=== PATIENT | female | born 1945 | race Caucasian/White ===

== ENCOUNTER 2025-01-22 14:03 | Inpatient (IN) | payer BC ==
[~2025-01-22] VITALS: Ht 165.1 cm; Wt 68.0 kg
[2025-01-22] VITALS (15 sets, daily range): BP systolic 105–143; BP diastolic 64–97; TEMP 97.8; O2SAT 87–97
[2025-01-22] MEDS: IV NORMAL SALINE 1000 ML BAG IV ONE ×2 (14:17→16:15)
[2025-01-22] MEDS: AMIODARONE HCL IV 150 MG in IV DEXTROSE 5% 100 ML IV ONE (14:36)
[2025-01-22 14:53] LABS: PLATELET COUNT (AUTO) 334 K/uL (179-408); RED BLOOD CELL COUNT(AUTO) 5.34 MIL/uL (3.63-4.92); RED CELL DISTRIBUTION WIDTH 13.6 % (12.3-17.7); WHITE BLOOD COUNT (AUTO) 9.1 K/uL (3.8-11.8)
[2025-01-22] MEDS: AMIODARONE HCL IV 450 MG in IV DEXTROSE 5% 250 ML IV ONE (14:55)
[2025-01-22 15:06] LABS: ASPARTATE AMINOTRANSFERASE 42 U/L (15-37); CREATININE 1.3 mg/dL (0.6-1.3); SODIUM SERUM 150 mmol/L (136-145); TOTAL PROTEIN, SERUM 7.1 g/dL (6.4-8.2)
[2025-01-22 15:10] LABS: LACTIC ACID 2.8 mmol/L (0.4-2.0); UREA NITROGEN, BLOOD 88 mg/dL (7-18)
[2025-01-22] MEDS ORDERED: MEROPENEM 1GM/NS 100ML IVPB **ER PYXIS ONLY IV ONE (15:20)
[2025-01-22] MEDS: IV NORMAL SALINE 500 ML BAG IV ONE (15:30)
[2025-01-22] MEDS: MEROPENEM 1,000 MG in IV NORMAL SALINE 100 ML IV ONE (15:35)
[2025-01-22] MEDS ORDERED: IV NS 1000 ML 1,000 ML IV PRN (16:45)
[2025-01-22] MEDS ORDERED: REMEDY ESSENTIAL ZINC PASTE 113 GM TP PRN (16:45)
[2025-01-22] MEDS ORDERED: ONDANSETRON 4 MG/2 ML VIAL IV PRN (16:45)
[2025-01-22] MEDS ORDERED: AMLO-212 PO (16:48)
[2025-01-22] MEDS ORDERED: LISI10TA29 PO (16:48)
[2025-01-22] MEDS: IV NS 1000 ML 1,000 ML IV ONE (17:00)
[2025-01-22 17:51] LABS: CREATININE 1.1 mg/dL (0.6-1.3); SODIUM SERUM 152 mmol/L (136-145)
[2025-01-22 17:55] LABS: UREA NITROGEN, BLOOD 86 mg/dL (7-18)
[2025-01-22] MEDS: DIGOXIN 500 MCG/2 ML AMP IV ONE (18:00)
[2025-01-22] MEDS ORDERED: DIGOXIN 500 MCG/2 ML AMP ONE (18:19)
[2025-01-22] MEDS: IV D5W 1000ML 1,000 ML IV ONE ×2 (18:30→22:39)
[2025-01-22 20:45] LABS: *BILIRUBIN,URIN 1+ (NEGATIVE); *BLOOD, URINE 1+ (NEGATIVE); *CLARITY,URINE CLEAR (CLEAR); *COLOR,URINE YELLOW (YELLOW); *KETONES,URINE 1+ (NEGATIVE); *PROTEIN,URINE 2+ (NEGATIVE); *UROBILINOGEN,URINE 0.2 E.U./dl (NORMAL); LEUKOCYTE ESTERASE ,URINE NEGATIVE (NEGATIVE); NITRITE, URINE NEGATIVE (NEGATIVE); UGLUCOSE NEGATIVE (NEGATIVE)
[2025-01-22 20:59] LABS: SQUAMOUS EPITHELIAL CELL,UR FEW /HPF (NONE SEEN)
[2025-01-22] MEDS ORDERED: CEFEPIME HCL 1 G VIAL ONE (21:17)
[2025-01-22] MEDS: CEFEPIME HCL 1 G in IV DEXTROSE 5% 50 ML IV SCH (21:19)
[2025-01-22] MEDS ORDERED: AMIODARONE HCL 150 MG/3 ML VIAL IV ONE (21:36)
[2025-01-22] MEDS: AMIODARONE HCL IV 450 MG in IV DEXTROSE 5% 250 ML IV PRN (21:53)
[2025-01-23] VITALS (37 sets, daily range): BP systolic 103–149; BP diastolic 67–119; TEMP 98.1–98.8; O2SAT 95–98
[2025-01-23 05:09] LABS: PLATELET COUNT (AUTO) 259 K/uL (179-408); RED BLOOD CELL COUNT(AUTO) 4.72 MIL/uL (3.63-4.92); RED CELL DISTRIBUTION WIDTH 13.4 % (12.3-17.7); WHITE BLOOD COUNT (AUTO) 9.2 K/uL (3.8-11.8)
[2025-01-23 05:10] LABS: CREATININE 0.8 mg/dL (0.6-1.3); SODIUM SERUM 140 mmol/L (136-145); UREA NITROGEN, BLOOD 57 mg/dL (7-18)
[2025-01-23 05:12] LABS: NEUTROPHILS % (MANUAL) 0 % (42-75)
[2025-01-23 05:45] LABS: CREATINE KINASE, TOTAL 470 U/L (26-192)
[2025-01-23] MEDS ORDERED: PANTOPRAZOLE SODIUM 40 MG TABLET.DR PO ONE ×2 (07:03→08:40)
[2025-01-23] MEDS: PANTOPRAZOLE SODIUM 40 MG TABLET.DR PO SCH (07:04)
[2025-01-23] MEDS ORDERED: DILTIAZEM HCL 60 MG TABLET ONE ×2 (10:28→13:47)
[2025-01-23] MEDS: APIXABAN 5 MG TABLET PO SCH (10:32)
[2025-01-23] MEDS: DILTIAZEM HCL 30 MG TABLET PO SCH (10:34)
[2025-01-23] MEDS: IV NS 1000 ML 1,000 ML IV PRN (11:01)
[2025-01-23] MEDS: NEUTRA PHOS PACKET PO ONE (12:34)
[2025-01-23] MEDS: VANCOMYCIN IV 1,000 MG in IV DEXTROSE 5% 250 ML IV SCH (15:12)
[2025-01-24] VITALS: BP 141/84; TEMP 98.6; O2SAT 95
[2025-01-24 04:00] VITALS: BP 148/78; TEMP 98; O2SAT 97
[2025-01-24 06:54] LABS: PLATELET COUNT (AUTO) 219 K/uL (179-408); RED BLOOD CELL COUNT(AUTO) 4.39 MIL/uL (3.63-4.92); RED CELL DISTRIBUTION WIDTH 13.1 % (12.3-17.7); WHITE BLOOD COUNT (AUTO) 7.0 K/uL (3.8-11.8)
[2025-01-24 06:56] LABS: CREATININE 0.7 mg/dL (0.6-1.3); SODIUM SERUM 145 mmol/L (136-145); UREA NITROGEN, BLOOD 37 mg/dL (7-18)
[2025-01-24 08:00] VITALS: BP 137/73; TEMP 98.9; O2SAT 97
[2025-01-24] MEDS: DILTIAZEM HCL CD 180 MG CAP.SR.24H PO SCH (09:35)
[2025-01-24 11:52] VITALS: BP 126/75; TEMP 98.2; O2SAT 96
[2025-01-24] MEDS: MEDIHONEY= THERAHONEY 1.5 OZ TUBE TOP SCH (13:50)
[2025-01-24 14:25] LABS: BAND % (MANUAL) 8 % (0-10); EOSINOPHILS % (MANUAL) 1 % (0-8); LYMPHOCYTES % (MANUAL) 25 % (20-40); MONOCYTES % (MANUAL) 18 % (2-10); NEUTROPHILS % (MANUAL) 48 % (42-75)
[2025-01-24] MEDS: MAGNESIUM HYDROXIDE 30 ML LIQUID UDC PO PRN (15:01)
[2025-01-24] MEDS: MAG HYDROX/AL HYDROX/SIMETH 30 ML LIQUID UDC PO PRN (15:09)
[2025-01-24 15:56] VITALS: BP 102/58; TEMP 98; O2SAT 95
[2025-01-24] MEDS: ACETAMINOPHEN 325 MG TABLET PO PRN (15:58)
[2025-01-24 19:00] VITALS: BP 136/52; TEMP 97.6; O2SAT 98
[2025-01-24] MEDS: MELATONIN 3 MG TABLET PO PRN (21:05)
[2025-01-25] VITALS: BP 130/67; TEMP 97.7; O2SAT 95
[2025-01-25 04:00] VITALS: BP 118/64; TEMP 97.7; O2SAT 96
[2025-01-25] MEDS: HYDROCODONE/APAP 5-325MG TABLET PO PRN (06:13)
[2025-01-25 06:58] LABS: PLATELET COUNT (AUTO) 229 K/uL (179-408); RED BLOOD CELL COUNT(AUTO) 4.18 MIL/uL (3.63-4.92); RED CELL DISTRIBUTION WIDTH 13.4 % (12.3-17.7); WHITE BLOOD COUNT (AUTO) 9.4 K/uL (3.8-11.8)
[2025-01-25 07:08] LABS: CREATININE 0.8 mg/dL (0.6-1.3); SODIUM SERUM 142 mmol/L (136-145); UREA NITROGEN, BLOOD 34 mg/dL (7-18)
[2025-01-25 07:48] VITALS: BP 135/63; TEMP 97.8; O2SAT 98
[2025-01-25 14:37] VITALS: BP 140/53; TEMP 97.6; O2SAT 97
[2025-01-25 16:21] VITALS: BP 133/69; TEMP 97.6; O2SAT 97
[2025-01-25 19:00] VITALS: BP 119/62; TEMP 97.9; O2SAT 95
[2025-01-26] VITALS: BP 129/68; TEMP 97.8; O2SAT 95
[2025-01-26 04:00] VITALS: BP 124/70; TEMP 97.8; O2SAT 95
[2025-01-26 07:11] LABS: PLATELET COUNT (AUTO) 219 K/uL (179-408); RED BLOOD CELL COUNT(AUTO) 4.15 MIL/uL (3.63-4.92); RED CELL DISTRIBUTION WIDTH 13.1 % (12.3-17.7); WHITE BLOOD COUNT (AUTO) 8.9 K/uL (3.8-11.8)
[2025-01-26 07:28] LABS: CREATININE 0.7 mg/dL (0.6-1.3); SODIUM SERUM 139 mmol/L (136-145); UREA NITROGEN, BLOOD 29 mg/dL (7-18)
[2025-01-26 07:50] VITALS: BP 131/63; TEMP 98; O2SAT 95
[2025-01-26 11:55] VITALS: BP 109/61; TEMP 98.1; O2SAT 96
[2025-01-26 16:31] VITALS: BP 117/61; TEMP 98.2; O2SAT 94
[2025-01-26 19:55] VITALS: BP 135/65; TEMP 97.8; O2SAT 95
[2025-01-27 05:57] VITALS: BP 131/63; TEMP 97.9; O2SAT 96
[2025-01-27 06:55] LABS: PLATELET COUNT (AUTO) 222 K/uL (179-408); RED BLOOD CELL COUNT(AUTO) 3.86 MIL/uL (3.63-4.92); RED CELL DISTRIBUTION WIDTH 12.9 % (12.3-17.7); WHITE BLOOD COUNT (AUTO) 10.0 K/uL (3.8-11.8)
[2025-01-27 07:06] LABS: CREATININE 0.6 mg/dL (0.6-1.3); SODIUM SERUM 140 mmol/L (136-145); UREA NITROGEN, BLOOD 30 mg/dL (7-18)
[2025-01-27 08:55] VITALS: BP 134/69; TEMP 97.9; O2SAT 96
[2025-01-27] MEDS ORDERED: AMLODIPINE 5 MG TABLET PO SCH (09:00)
[2025-01-27] MEDS: LISINOPRIL 10 MG TABLET PO SCH (09:12)
[2025-01-27] MEDS: LACTULOSE 20 G/30 ML LIQUID UDC PO ONE (09:57)
[2025-01-27 11:50] VITALS: BP 107/53; TEMP 98.8; O2SAT 97
[2025-01-27 16:18] VITALS: BP 104/62; TEMP 98.6; O2SAT 96
[2025-01-27 20:30] VITALS: BP 121/56; TEMP 98.1; O2SAT 95
[2025-01-28] MEDS: TRAZODONE 50 MG TABLET PO ONE (00:14)
[2025-01-28 04:35] VITALS: BP 128/57; TEMP 97.2; O2SAT 96
[2025-01-28 06:58] LABS: PLATELET COUNT (AUTO) 240 K/uL (179-408); RED BLOOD CELL COUNT(AUTO) 3.84 MIL/uL (3.63-4.92); RED CELL DISTRIBUTION WIDTH 12.9 % (12.3-17.7); WHITE BLOOD COUNT (AUTO) 10.7 K/uL (3.8-11.8)
[2025-01-28 07:14] LABS: CREATININE 0.6 mg/dL (0.6-1.3); SODIUM SERUM 137 mmol/L (136-145); UREA NITROGEN, BLOOD 32 mg/dL (7-18)
[2025-01-28 11:56] VITALS: BP 119/59; TEMP 98.4; O2SAT 96
[2025-01-28 16:04] VITALS: BP 121/49; TEMP 97.9; O2SAT 97
[2025-01-28 17:44] LABS: *CLARITY,URINE CLOUDY (CLEAR); *COLOR,URINE BROWN (YELLOW)
[2025-01-28 17:49] LABS: *BILIRUBIN,URIN 1+ (NEGATIVE); *BLOOD, URINE 4+ (NEGATIVE); *PROTEIN,URINE 3+ (NEGATIVE); UGLUCOSE NEGATIVE (NEGATIVE)
[2025-01-28 17:50] LABS: *KETONES,URINE NEGATIVE (NEGATIVE); *UROBILINOGEN,URINE 0.2 E.U./dl (NORMAL); NITRITE, URINE NEGATIVE (NEGATIVE)
[2025-01-28 17:51] LABS: LEUKOCYTE ESTERASE ,URINE TRACE (NEGATIVE)
[2025-01-28 17:59] LABS: SQUAMOUS EPITHELIAL CELL,UR MODERATE /HPF (NONE SEEN)
[2025-01-28 19:50] VITALS: BP 126/53; TEMP 99; O2SAT 97
[2025-01-29 06:08] VITALS: BP 121/57; TEMP 97.8; O2SAT 96
[2025-01-29 07:24] LABS: CREATININE 0.7 mg/dL (0.6-1.3); SODIUM SERUM 136 mmol/L (136-145); UREA NITROGEN, BLOOD 34 mg/dL (7-18)
[2025-01-29 07:31] LABS: PLATELET COUNT (AUTO) 224 K/uL (179-408); RED BLOOD CELL COUNT(AUTO) 3.14 MIL/uL (3.63-4.92); RED CELL DISTRIBUTION WIDTH 12.9 % (12.3-17.7); WHITE BLOOD COUNT (AUTO) 11.7 K/uL (3.8-11.8)
[2025-01-29 11:15] VITALS: BP 115/48; TEMP 98.2; O2SAT 96
[2025-01-29] MEDS ORDERED: APIX5TAB PO (11:18)
[2025-01-29] MEDS ORDERED: DILT180C66 PO (11:18)
[2025-01-29] MEDS ORDERED: CEPH500T PO (11:18)
[2025-01-29] MEDS: CEFTRIAXONE 1 G in IV DEXTROSE 5% 50 ML IV SCH (13:50)
[2025-01-29 15:07] VITALS: BP 108/54; TEMP 98.6; O2SAT 94
[2025-01-29 19:00] VITALS: BP 112/45; TEMP 98; O2SAT 95
[2025-01-30 06:00] VITALS: BP 119/83; TEMP 98.4; O2SAT 96
[2025-01-30 07:06] LABS: PLATELET COUNT (AUTO) 221 K/uL (179-408); RED BLOOD CELL COUNT(AUTO) 2.71 MIL/uL (3.63-4.92); RED CELL DISTRIBUTION WIDTH 13.1 % (12.3-17.7); WHITE BLOOD COUNT (AUTO) 10.8 K/uL (3.8-11.8)
[2025-01-30 07:24] LABS: CREATININE 0.7 mg/dL (0.6-1.3); SODIUM SERUM 138 mmol/L (136-145); UREA NITROGEN, BLOOD 33 mg/dL (7-18)
[2025-01-30 12:07] VITALS: BP 122/55; TEMP 98; O2SAT 95
== END 2025-01-30 13:05 | DRG 557 ==
LOC: ER 14:03 → ICU IN 19:55 → TELE3 01-23 16:10 → MEDSURG3 01-26 11:21
PROVIDERS: ADMIT Nurse Practitioner Acute Care; ATTEND Nurse Practitioner Acute Care
PROC: 05HF33Z Insertion of Infusion Device into Left Cephalic Vein, Percutaneous Approach (ICD-10-PCS; principal; 2025-01-22)
DX: M62.82 Rhabdomyolysis (principal); I21.A1 Myocardial infarction type 2; E87.0 Hyperosmolality and hypernatremia; N39.0 Urinary tract infection, site not specified; N17.9 Acute kidney failure, unspecified; E87.20 Acidosis, unspecified; G93.40 Encephalopathy, unspecified; R78.81 Bacteremia; I48.91 Unspecified atrial fibrillation; E86.0 Dehydration; Z79.899 Other long term (current) drug therapy; L89.156 Pressure-induced deep tissue damage of sacral region; L89.136 Pressure-induced deep tissue damage of right lower back; L89.146 Pressure-induced deep tissue damage of left lower back; I10 Essential (primary) hypertension; K59.00 Constipation, unspecified; D64.9 Anemia, unspecified; E86.1 Hypovolemia; N28.1 Cyst of kidney, acquired; M54.9 Dorsalgia, unspecified; R19.5 Other fecal abnormalities; R53.1 Weakness; Z91.81 History of falling; I95.9 Hypotension, unspecified
CPT/HCPCS: 36415; 70030-TC; 71045; 76770; 83605; 83735; 84100; 84443; 84484; 85025; 85730; 87040; 87086; 93307; A4606; A4663; A6213; C1758; G0378; J0282; J0692; J0696; J1160; J2185; J3373; J7040; J7050; J7060; J7070

== ENCOUNTER 2025-02-05 15:57 | Inpatient (IN) | payer BC, MEDICARE ==
[~2025-02-05] VITALS: Ht 170.2 cm; Wt 88.0 kg
[~2025-02-05 15:57] MED LIST: APIX5TAB PO; CEPH500T PO; DILT180C66 PO
[2025-02-05] MEDS: IV NORMAL SALINE 1000 ML BAG IV ONE (16:34)
[2025-02-05 16:42] LABS: PLATELET COUNT (AUTO) 397 K/uL (179-408); RED CELL DISTRIBUTION WIDTH 14.8 % (12.3-17.7); WHITE BLOOD COUNT (AUTO) 15.8 K/uL (3.8-11.8)
[2025-02-05 16:47] LABS: RED BLOOD CELL COUNT(AUTO) 2.15 MIL/uL (3.63-4.92)
[2025-02-05 16:47] LABS: ABG BASE EXCESS 1.9 mmol/L (-2.0-3.0); ABG HCO3 24.7 mmol/L (21.0-28.0); ABG PCO2 30.2 mmHg (32.0-45.0); ABG PH 7.530 (7.350-7.450); ABG PO2 60.5 mmHg (83.0-108.0); ABG SITE RIGHT RADIAL; ABG TOTAL HEMOGLOBIN 6.7 G/dL (12.0-16.0); AaDO2 94.0 mmHg; FIO2 21.0 %; FLOW, BLOOD GAS 0.00 L/min (0.00-30.00)
[2025-02-05 16:53] LABS: CREATININE 1.0 mg/dL (0.6-1.3); SODIUM SERUM 138 mmol/L (136-145); UREA NITROGEN, BLOOD 37 mg/dL (7-18)
[2025-02-05 17:05] LABS: ASPARTATE AMINOTRANSFERASE 18 U/L (15-37); TOTAL PROTEIN, SERUM 5.7 g/dL (6.4-8.2)
[2025-02-05 18:04] LABS: BAND % (MANUAL) 2 % (0-10); LYMPHOCYTES % (MANUAL) 12 % (20-40); MONOCYTES % (MANUAL) 5 % (2-10); NEUTROPHILS % (MANUAL) 81 % (42-75); PLATELET ESTIMATE ADEQUATE
[2025-02-05 18:11] LABS: *BILIRUBIN,URIN 1+ (NEGATIVE); *BLOOD, URINE NEGATIVE (NEGATIVE); *CLARITY,URINE CLEAR (CLEAR); *COLOR,URINE DARK YELLOW (YELLOW); *KETONES,URINE NEGATIVE (NEGATIVE); *PROTEIN,URINE NEGATIVE (NEGATIVE); *UROBILINOGEN,URINE 1.0 E.U./dl (NORMAL); LEUKOCYTE ESTERASE ,URINE NEGATIVE (NEGATIVE); NITRITE, URINE NEGATIVE (NEGATIVE); UGLUCOSE NEGATIVE (NEGATIVE)
[2025-02-05 19:05] LABS: SQUAMOUS EPITHELIAL CELL,UR FEW /HPF (NONE SEEN)
[2025-02-05 19:11] LABS: *OCCULT BLOOD STOOL POSITIVE (NEGATIVE)
[2025-02-05 19:30] VITALS: BP 124/50; TEMP 98; O2SAT 96
[2025-02-05] MEDS ORDERED: MAGNESIUM HYDROXIDE 30 ML LIQUID UDC PO PRN (19:45)
[2025-02-05 20:24] VITALS: BP 124/50; TEMP 98
[2025-02-05 20:52] VITALS: BP 112/42; TEMP 97.9
[2025-02-05 21:22] VITALS: BP 110/47; TEMP 97.9
[2025-02-05] MEDS ORDERED: CEFTRIAXONE /D5W 50ML IVPB **ER PYXIS IV ONE (21:53)
[2025-02-05 22:22] VITALS: BP 117/52; TEMP 98.5
[2025-02-05 23:15] VITALS: BP 112/46; TEMP 98.5
[2025-02-05] MEDS: IV NS 1000 ML 1,000 ML IV PRN (23:29)
[2025-02-05] MEDS: CEFTRIAXONE 1 G in IV DEXTROSE 5% 50 ML IV SCH (23:30)
[2025-02-06] VITALS (12 sets, daily range): BP systolic 100–131; BP diastolic 46–89; TEMP 97.7–99; O2SAT 94–98
[2025-02-06] MEDS: DILTIAZEM HCL CD 180 MG CAP.SR.24H PO SCH (06:48)
[2025-02-06 07:03] LABS: PLATELET COUNT (AUTO) 307 K/uL (179-408); RED CELL DISTRIBUTION WIDTH 14.6 % (12.3-17.7); WHITE BLOOD COUNT (AUTO) 10.5 K/uL (3.8-11.8)
[2025-02-06 07:05] LABS: ASPARTATE AMINOTRANSFERASE 10 U/L (15-37); CREATININE 0.7 mg/dL (0.6-1.3); SODIUM SERUM 141 mmol/L (136-145); TOTAL PROTEIN, SERUM 4.9 g/dL (6.4-8.2); UREA NITROGEN, BLOOD 33 mg/dL (7-18)
[2025-02-06 07:12] LABS: IRON, SERUM 18 ug/dL (50-175)
[2025-02-06 07:14] LABS: RED BLOOD CELL COUNT(AUTO) 2.10 MIL/uL (3.63-4.92)
[2025-02-06] MEDS: PANTOPRAZOLE SODIUM 40 MG VIAL IV SCH (08:26)
[2025-02-06] MEDS: ACETAMINOPHEN 325 MG TABLET PO PRN (08:31)
[2025-02-06] MEDS ORDERED: DILTIAZEM HCL CD 180 MG CAP.SR.24H PO SCH (09:00)
[2025-02-06] MEDS ORDERED: PANTOPRAZOLE SODIUM 40 MG VIAL IV SCH (09:00)
[2025-02-06 10:16] LABS: PLATELET COUNT (AUTO) 312 K/uL (179-408); RED CELL DISTRIBUTION WIDTH 14.4 % (12.3-17.7); WHITE BLOOD COUNT (AUTO) 11.6 K/uL (3.8-11.8)
[2025-02-06] MEDS: POTASSIUM CHLORIDE 20 MEQ POWDER PACKET PO ONE (10:16)
[2025-02-06 10:38] LABS: RED BLOOD CELL COUNT(AUTO) 2.17 MIL/uL (3.63-4.92)
[2025-02-06 14:48] LABS: BAND % (MANUAL) 8 % (0-10); EOSINOPHILS % (MANUAL) 1 % (0-8); LYMPHOCYTES % (MANUAL) 19 % (20-40); MONOCYTES % (MANUAL) 6 % (2-10); NEUTROPHILS % (MANUAL) 73 % (42-75)
[2025-02-06 14:49] LABS: PLATELET ESTIMATE ADEQUATE
[2025-02-07] VITALS (7 sets, daily range): BP systolic 112–136; BP diastolic 51–64; TEMP 97.8–98.2; O2SAT 62–100
[2025-02-07] MEDS: GUAIFENESIN/DEXTROMETHORPHAN 5 ML UDC PO PRN (00:18)
[2025-02-07] MEDS: HYDROCODONE/APAP 5-325MG TABLET PO ONE (02:03)
[2025-02-07 06:45] LABS: CREATININE 0.7 mg/dL (0.6-1.3); SODIUM SERUM 139 mmol/L (136-145); UREA NITROGEN, BLOOD 26 mg/dL (7-18)
[2025-02-07 09:31] LABS: PLATELET COUNT (AUTO) 305 K/uL (179-408); RED CELL DISTRIBUTION WIDTH 14.3 % (12.3-17.7); WHITE BLOOD COUNT (AUTO) 8.3 K/uL (3.8-11.8)
[2025-02-07 09:57] LABS: RED BLOOD CELL COUNT(AUTO) 2.46 MIL/uL (3.63-4.92)
[2025-02-07] MEDS: TRAMADOL HCL 50 MG TABLET PO PRN (10:19)
[2025-02-07] MEDS ORDERED: REMEDY ESSENTIAL ZINC PASTE 113 GM TOP PRN (10:30)
[2025-02-07] MEDS: SODIUM HYPOCHLORITE 0.125% (QUARTER STRENGTH) 473 ML BOTTLE TP SCH (11:34)
[2025-02-07] MEDS ORDERED: PROPOFOL 200 MG/20 ML BOTTLE ONE (18:00)
[2025-02-07] MEDS: REMEDY ESSENTIAL ZINC PASTE 113 GM TOP SCH (20:59)
[2025-02-08] VITALS (8 sets, daily range): BP systolic 103–139; BP diastolic 51–77; TEMP 98–98.6; O2SAT 95–97
[2025-02-08] MEDS ORDERED: HYDROCODONE/APAP 5-325MG TABLET PO PRN (04:00)
[2025-02-08 06:36] LABS: PLATELET COUNT (AUTO) 339 K/uL (179-408); RED CELL DISTRIBUTION WIDTH 14.5 % (12.3-17.7); WHITE BLOOD COUNT (AUTO) 6.5 K/uL (3.8-11.8)
[2025-02-08] MEDS: HYDROCODONE/APAP 5-325MG TABLET PO PRN (06:40)
[2025-02-08 06:48] LABS: RED BLOOD CELL COUNT(AUTO) 2.45 MIL/uL (3.63-4.92)
[2025-02-08 06:56] LABS: CREATININE 0.9 mg/dL (0.6-1.3); SODIUM SERUM 143 mmol/L (136-145); UREA NITROGEN, BLOOD 20 mg/dL (7-18)
[2025-02-08] MEDS: DOCUSATE SODIUM 100 MG CAPSULE PO SCH (09:00)
[2025-02-09 03:58] VITALS: O2SAT 96
[2025-02-09 06:42] LABS: PLATELET COUNT (AUTO) 339 K/uL (179-408); RED CELL DISTRIBUTION WIDTH 14.9 % (12.3-17.7); WHITE BLOOD COUNT (AUTO) 6.9 K/uL (3.8-11.8)
[2025-02-09 06:55] LABS: RED BLOOD CELL COUNT(AUTO) 2.37 MIL/uL (3.63-4.92)
[2025-02-09 07:02] LABS: CREATININE 0.8 mg/dL (0.6-1.3); SODIUM SERUM 143 mmol/L (136-145); UREA NITROGEN, BLOOD 22 mg/dL (7-18)
[2025-02-09] MEDS: APIXABAN 5 MG TABLET PO SCH (09:27)
[2025-02-09 12:00] VITALS: BP 104/58; TEMP 97.8; O2SAT 98
[2025-02-09 16:30] VITALS: O2SAT 98
[2025-02-09 16:46] VITALS: BP 119/53; TEMP 98.2; O2SAT 96
[2025-02-09 19:20] VITALS: BP 113/57; TEMP 98.8; O2SAT 92
[2025-02-10] VITALS (8 sets, daily range): BP systolic 107–125; BP diastolic 49–68; TEMP 97.5–98.9; O2SAT 94–98
[2025-02-10 07:10] LABS: PLATELET COUNT (AUTO) 365 K/uL (179-408); RED CELL DISTRIBUTION WIDTH 14.5 % (12.3-17.7); WHITE BLOOD COUNT (AUTO) 8.3 K/uL (3.8-11.8)
[2025-02-10 07:38] LABS: RED BLOOD CELL COUNT(AUTO) 2.34 MIL/uL (3.63-4.92)
[2025-02-10 07:50] LABS: CREATININE 0.7 mg/dL (0.6-1.3); SODIUM SERUM 143 mmol/L (136-145); UREA NITROGEN, BLOOD 25 mg/dL (7-18)
[2025-02-10] MEDS: POTASSIUM CHLORIDE 20 MEQ TAB.PRT.SR PO ONE (13:19)
[2025-02-10] MEDS: ARGININE/GLUTAMINE/CALCIUM BMB 1 EACH POWD.PACK PO SCH (17:32)
[2025-02-10] MEDS ORDERED: APIXABAN 5 MG TABLET PO SCH (21:00)
[2025-02-11] VITALS (16 sets, daily range): BP systolic 98–124; BP diastolic 44–65; TEMP 97.9–98.8; O2SAT 94–99
[2025-02-11 07:06] LABS: CREATININE 0.7 mg/dL (0.6-1.3); SODIUM SERUM 142 mmol/L (136-145); UREA NITROGEN, BLOOD 30 mg/dL (7-18)
[2025-02-11 07:08] LABS: PLATELET COUNT (AUTO) 348 K/uL (179-408); RED CELL DISTRIBUTION WIDTH 14.8 % (12.3-17.7); WHITE BLOOD COUNT (AUTO) 8.8 K/uL (3.8-11.8)
[2025-02-11 07:53] LABS: RED BLOOD CELL COUNT(AUTO) 2.22 MIL/uL (3.63-4.92)
[2025-02-11] MEDS: ONDANSETRON 4 MG/2 ML VIAL IV PRN (08:13)
[2025-02-11] MEDS: MAGNESIUM OXIDE 400 MG TABLET PO ONE (11:28)
[2025-02-12 04:27] VITALS: O2SAT 96
[2025-02-12 06:00] VITALS: BP 135/62; TEMP 98.2; O2SAT 94
[2025-02-12 06:51] LABS: PLATELET COUNT (AUTO) 334 K/uL (179-408); RED CELL DISTRIBUTION WIDTH 14.6 % (12.3-17.7); WHITE BLOOD COUNT (AUTO) 9.0 K/uL (3.8-11.8)
[2025-02-12 07:00] LABS: CREATININE 0.7 mg/dL (0.6-1.3); SODIUM SERUM 141 mmol/L (136-145); UREA NITROGEN, BLOOD 30 mg/dL (7-18)
[2025-02-12 07:17] LABS: RED BLOOD CELL COUNT(AUTO) 2.46 MIL/uL (3.63-4.92)
[2025-02-12 11:30] VITALS: BP 114/53; TEMP 98.8; O2SAT 96
[2025-02-12] MEDS: SOD FERRIC GLUC COMPLX/SUCROSE 125 MG in IV NORMAL SALINE 100 ML IV SCH (14:15)
[2025-02-12 15:38] VITALS: BP 109/50; TEMP 98.8; O2SAT 96
[2025-02-12] MEDS: HYDROCODONE/APAP 10-325 MG TABLET PO PRN (15:40)
[2025-02-12 16:07] VITALS: O2SAT 96
[2025-02-12 19:25] VITALS: BP 113/55; TEMP 97.9; O2SAT 94
[2025-02-12] MEDS: HYDROMORPHONE 1 MG/1 ML DISP.SYRIN IV ONE (20:44)
[2025-02-13 05:39] VITALS: O2SAT 96
[2025-02-13 06:38] LABS: PLATELET COUNT (AUTO) 307 K/uL (179-408); RED CELL DISTRIBUTION WIDTH 14.9 % (12.3-17.7); WHITE BLOOD COUNT (AUTO) 7.8 K/uL (3.8-11.8)
[2025-02-13 06:42] VITALS: BP 128/55; TEMP 98; O2SAT 91
[2025-02-13 06:48] LABS: RED BLOOD CELL COUNT(AUTO) 2.42 MIL/uL (3.63-4.92)
[2025-02-13] MEDS ORDERED: DILT180C66 PO (10:42)
[2025-02-13] MEDS ORDERED: PANT40TA2 PO (10:42)
[2025-02-13] MEDS ORDERED: HYDR-3980 PO (10:42)
[2025-02-13] MEDS ORDERED: NUTR1PAC14 PO (10:42)
[2025-02-13] MEDS ORDERED: DOCU-141 PO (10:42)
[2025-02-13] MEDS ORDERED: SODI473S8 TP (10:42)
[2025-02-13] MEDS ORDERED: MAGN400O6 PO (10:42)
[2025-02-13 12:00] VITALS: BP 121/56; TEMP 98.8; O2SAT 98
[2025-02-13 16:00] VITALS: BP 110/51; TEMP 98.9; O2SAT 96
[2025-02-13 16:21] VITALS: O2SAT 96
[2025-02-13 19:52] VITALS: BP 127/50; TEMP 99.2; O2SAT 91
[2025-02-14 04:57] VITALS: BP 132/69; TEMP 98.4; O2SAT 94
[2025-02-14 06:48] LABS: PLATELET COUNT (AUTO) 305 K/uL (179-408); RED CELL DISTRIBUTION WIDTH 14.9 % (12.3-17.7); WHITE BLOOD COUNT (AUTO) 7.4 K/uL (3.8-11.8)
[2025-02-14 06:54] LABS: RED BLOOD CELL COUNT(AUTO) 2.28 MIL/uL (3.63-4.92)
[2025-02-14 10:58] VITALS: BP 139/49; TEMP 98.2; O2SAT 98
[2025-02-14 11:01] LABS: BAND % (MANUAL) 4 % (0-10); EOSINOPHILS % (MANUAL) 2 % (0-8); LYMPHOCYTES % (MANUAL) 15 % (20-40); METAMYELOCYTES % 2 % (0-1); MONOCYTES % (MANUAL) 6 % (2-10); MYELOCYTES % 2 % (0-0); NEUTROPHILS % (MANUAL) 69 % (42-75); PLATELET ESTIMATE ADEQUATE
[2025-02-14] MEDS ORDERED: FOLI1TAB27 PO (11:03)
[2025-02-14] MEDS ORDERED: FERR-56 PO (11:03)
[2025-02-14] MEDS: ENSURE WITH FIBER 237 ML LIQUID (CHOCOLATE) PO SCH (13:11)
[2025-02-14 15:29] VITALS: BP 116/48; TEMP 98.6; O2SAT 96
== END 2025-02-14 17:30 | DRG 907 ==
LOC: ER 16:04 → TELE3 18:51 → MEDSURG3 02-11 14:03
PROVIDERS: ADMIT Nurse Practitioner Family; ATTEND Nurse Practitioner Family
PROC: 05HC33Z Insertion of Infusion Device into Left Basilic Vein, Percutaneous Approach (ICD-10-PCS; 2025-02-05)
PROC: 30233N1 Transfusion of Nonautologous Red Blood Cells into Peripheral Vein, Percutaneous Approach (ICD-10-PCS; 2025-02-05)
PROC: 0DB68ZX Excision of Stomach, Via Natural or Artificial Opening Endoscopic, Diagnostic (ICD-10-PCS; principal; 2025-02-07 18:30)
PROC: 0DW63CZ Revision of Extraluminal Device in Stomach, Percutaneous Approach (ICD-10-PCS; 2025-02-09)
PROC: 0KBN0ZZ Excision of Right Hip Muscle, Open Approach (ICD-10-PCS; 2025-02-12)
PROC: 0KBP0ZZ Excision of Left Hip Muscle, Open Approach (ICD-10-PCS; 2025-02-12)
DX: T85.598A Other mechanical complication of other gastrointestinal prosthetic devices, implants and grafts, initial encounter (principal); K22.11 Ulcer of esophagus with bleeding; L89.154 Pressure ulcer of sacral region, stage 4; J90 Pleural effusion, not elsewhere classified; E44.0 Moderate protein-calorie malnutrition; E87.0 Hyperosmolality and hypernatremia; I48.20 Chronic atrial fibrillation, unspecified; D50.0 Iron deficiency anemia secondary to blood loss (chronic); Y73.8 Miscellaneous gastroenterology and urology devices associated with adverse incidents, not elsewhere classified; Y92.129 Unspecified place in nursing home as the place of occurrence of the external cause; K80.20 Calculus of gallbladder without cholecystitis without obstruction; Z79.01 Long term (current) use of anticoagulants; E78.5 Hyperlipidemia, unspecified; K22.89 Other specified disease of esophagus; E66.9 Obesity, unspecified; Z68.30 Body mass index [BMI] 30.0-30.9, adult; D72.829 Elevated white blood cell count, unspecified; E86.1 Hypovolemia; E88.09 Other disorders of plasma-protein metabolism, not elsewhere classified; Z79.899 Other long term (current) drug therapy; N28.1 Cyst of kidney, acquired; I10 Essential (primary) hypertension
CPT/HCPCS: 36415; 36600; 70030-TC; 70450; 71045; 83550; 83605; 83690; 83735; 84100; 84484; 85018; 85025; 85730; 86850; 86900; 86901; 86920; 87040; 87086; 88313-TC; 88342; 93005; A4606; A4663; A6213; G0378; J0696; J1171; J2405; J2470; J2916; J3490; J7040; J7042; P9016

== ENCOUNTER 2025-02-22 21:32 | Inpatient (IN) | payer BC, MEDICARE ==
[~2025-02-22] VITALS: Ht 165.1 cm; Wt 103.0 kg
[~2025-02-22 21:32] MED LIST changes: -APIX5TAB PO; -CEPH500T PO; +DOCU-141 PO; +FERR-56 PO; +FOLI1TAB27 PO; +HYDR-3980 PO; +MAGN400O6 PO; +NUTR1PAC14 PO; +PANT40TA2 PO; +SODI473S8 TP
[2025-02-22] MEDS ORDERED: ONDANSETRON 4 MG/2 ML VIAL ONE (21:57)
[2025-02-22] MEDS ORDERED: PANTOPRAZOLE SODIUM 40 MG VIAL ONE (21:58)
[2025-02-22 21:59] LABS: PLATELET COUNT (AUTO) 497 K/uL (179-408); RED CELL DISTRIBUTION WIDTH 16.7 % (12.3-17.7); WHITE BLOOD COUNT (AUTO) 11.8 K/uL (3.8-11.8)
[2025-02-22 22:01] LABS: RED BLOOD CELL COUNT(AUTO) 2.35 MIL/uL (3.63-4.92)
[2025-02-22 22:06] LABS: CREATININE 1.4 mg/dL (0.6-1.3); SODIUM SERUM 143 mmol/L (136-145); UREA NITROGEN, BLOOD 41 mg/dL (7-18)
[2025-02-22 22:11] LABS: ASPARTATE AMINOTRANSFERASE 5 U/L (15-37); TOTAL PROTEIN, SERUM 6.0 g/dL (6.4-8.2)
[2025-02-22] MEDS: IV NORMAL SALINE 500 ML BAG IV ONE (22:17)
[2025-02-22] MEDS: ONDANSETRON 4 MG/2 ML VIAL IV ONE (22:18)
[2025-02-22] MEDS: PANTOPRAZOLE SODIUM IV 80 MG in IV DEXTROSE 5% 100 ML IV ONE (22:18)
[2025-02-22] MEDS ORDERED: DILTIAZEM HCL 25 MG IV ONE ×2 (22:22→22:23)
[2025-02-22] MEDS ORDERED: DILTIAZEM HCL 50 MG IV ONE (22:23)
[2025-02-22 22:27] LABS: *BILIRUBIN,URIN NEGATIVE (NEGATIVE); *BLOOD, URINE NEGATIVE (NEGATIVE); *CLARITY,URINE CLEAR (CLEAR); *COLOR,URINE DARK YELLOW (YELLOW); *KETONES,URINE NEGATIVE (NEGATIVE); *PROTEIN,URINE NEGATIVE (NEGATIVE); *UROBILINOGEN,URINE 0.2 E.U./dl (NORMAL); LEUKOCYTE ESTERASE ,URINE 1+ (NEGATIVE); NITRITE, URINE NEGATIVE (NEGATIVE); UGLUCOSE NEGATIVE (NEGATIVE)
[2025-02-22 22:27] LABS: *OCCULT BLOOD STOOL POSITIVE (NEGATIVE)
[2025-02-22] MEDS ORDERED: IV NORMAL SALINE 500 ML BAG IV ONE (22:30)
[2025-02-22] MEDS ORDERED: MAGN400T26 PO (22:36)
[2025-02-22] MEDS ORDERED: AMIN30LI27 PO (22:36)
[2025-02-22] MEDS ORDERED: ASCO500C18 PO (22:36)
[2025-02-22] MEDS ORDERED: DILT360C28 PO (22:36)
[2025-02-22] MEDS ORDERED: ACET650T10 PO (22:36)
[2025-02-22] MEDS ORDERED: MULT-594 PO (22:36)
[2025-02-22] MEDS ORDERED: SODI473S8 TOP (22:36)
[2025-02-22] MEDS: IV NORMAL SALINE 1000 ML BAG IV ONE (22:37)
[2025-02-22] MEDS: DILTIAZEM HCL 25 MG IV IV ONE (22:37)
[2025-02-22] MEDS ORDERED: IV NORMAL SALINE 250 ML IV ONE (22:57)
[2025-02-22] MEDS ORDERED: SWABABLE VALVE TRANSFER SET EA MC ONE (22:57)
[2025-02-22] MEDS ORDERED: IOHEXOL 350 100 ML INFUS..BTL ONE (22:57)
[2025-02-22 23:00] LABS: SQUAMOUS EPITHELIAL CELL,UR FEW /HPF (NONE SEEN)
[2025-02-22 23:01] LABS: YEAST,URINE MODERATE /HPF (NONE SEEN)
[2025-02-23] VITALS (29 sets, daily range): BP systolic 77–164; BP diastolic 31–93; TEMP 97.6–98.4; O2SAT 91–100
[2025-02-23] MEDS: IV NORMAL SALINE 1000 ML BAG IV ONE
[2025-02-23] MEDS: DILTIAZEM HCL IV 125 MG in IV NORMAL SALINE 100 ML IV PRN (00:02)
[2025-02-23] MEDS ORDERED: DIGOXIN 500 MCG/2 ML AMP ONE (00:03)
[2025-02-23] MEDS: DIGOXIN 500 MCG/2 ML AMP IV ONE (00:04)
[2025-02-23] MEDS ORDERED: ONDANSETRON 4 MG/2 ML VIAL IV PRN (01:15)
[2025-02-23] MEDS ORDERED: MAGNESIUM HYDROXIDE 30 ML LIQUID UDC PO PRN (01:15)
[2025-02-23] MEDS ORDERED: ALBUTEROL SULFATE 2.5 MG/3 ML NEBU NEB PRN (01:15)
[2025-02-23] MEDS ORDERED: ACETAMINOPHEN 650 MG SUPP.RECT RC PRN (01:15)
[2025-02-23] MEDS ORDERED: NOREPINEPHRINE 8MG/NS 250ML 250 ML IV ONE (02:53)
[2025-02-23] MEDS: NOREPINEPHRINE 8MG/NS 250ML 250 ML IV PRN (02:56)
[2025-02-23 05:19] LABS: PLATELET COUNT (AUTO) 405 K/uL (179-408); RED CELL DISTRIBUTION WIDTH 16.2 % (12.3-17.7); WHITE BLOOD COUNT (AUTO) 10.5 K/uL (3.8-11.8)
[2025-02-23 05:23] LABS: RED BLOOD CELL COUNT(AUTO) 2.29 MIL/uL (3.63-4.92)
[2025-02-23 05:34] LABS: ASPARTATE AMINOTRANSFERASE < 5 U/L (15-37); CREATININE 1.2 mg/dL (0.6-1.3); IRON, SERUM 55 ug/dL (50-175); SODIUM SERUM 144 mmol/L (136-145); TOTAL PROTEIN, SERUM 4.8 g/dL (6.4-8.2); UREA NITROGEN, BLOOD 33 mg/dL (7-18)
[2025-02-23] MEDS: PANTOPRAZOLE SODIUM 40 MG VIAL IV ONE (07:05)
[2025-02-23] MEDS ORDERED: HYDR-3980 PO (10:33)
[2025-02-23] MEDS ORDERED: ZINC220T3 PO (10:34)
[2025-02-23] MEDS: MORPHINE SULFATE 2 MG/1 ML DISP.SYRIN IV PRN (10:53)
[2025-02-23] MEDS: AMIODARONE HCL 200 MG TABLET PO SCH (10:54)
[2025-02-23] MEDS: PANTOPRAZOLE SODIUM 40 MG VIAL IV SCH (10:55)
[2025-02-23] MEDS: POTASSIUM CHLORIDE 50 ML IV SCH (10:55)
[2025-02-23] MEDS: VANCOMYCIN IV 1,000 MG in IV DEXTROSE 5% 250 ML IV SCH (12:18)
[2025-02-23] MEDS ORDERED: PIPERACILLIN SODIUM/TAZOBACTAM 3.375 G in IV DEXTROSE 5% 50 ML IV SCH (14:00)
[2025-02-23] MEDS: PIPERACILLIN SODIUM/TAZOBACTAM 3.375 G in IV DEXTROSE 5% 100 ML IV SCH (14:45)
[2025-02-23] MEDS: FLUCONAZOLE 200 MG/NS 100ML IV 200 MG in PREMIXED 1 EACH IV ONE (16:07)
[2025-02-23] MEDS ORDERED: PROPOFOL 200 MG/20 ML BOTTLE ONE (18:35)
[2025-02-23] MEDS ORDERED: EPHEDRINE SULFATE 50 MG/ML AMPUL ONE (18:35)
[2025-02-23] MEDS ORDERED: LIDOCAINE-MPF 2% 5 ML VIAL ONE (18:35)
[2025-02-23] MEDS: MAGNESIUM SULFATE/D5W 100 ML IV SCH ×2 (20:44→20:50)
[2025-02-23] MEDS: SUCRALFATE 1 G/10 ML LIQUID UDC PO SCH (21:35)
[2025-02-24] VITALS (10 sets, daily range): BP systolic 100–144; BP diastolic 43–74; TEMP 97.2–98.6; O2SAT 97–100
[2025-02-24 05:03] LABS: PLATELET COUNT (AUTO) 347 K/uL (179-408); RED CELL DISTRIBUTION WIDTH 18.5 % (12.3-17.7); WHITE BLOOD COUNT (AUTO) 8.5 K/uL (3.8-11.8)
[2025-02-24 05:04] LABS: RED BLOOD CELL COUNT(AUTO) 2.40 MIL/uL (3.63-4.92)
[2025-02-24 05:13] LABS: CREATININE 0.7 mg/dL (0.6-1.3); SODIUM SERUM 142 mmol/L (136-145); UREA NITROGEN, BLOOD 22 mg/dL (7-18)
[2025-02-24] MEDS: SUCRALFATE 1 G TABLET PO SCH (08:58)
[2025-02-24] MEDS: ACETAMINOPHEN 325 MG TABLET PO PRN (08:59)
[2025-02-24] MEDS: POTASSIUM CHLORIDE 50 ML IV SCH (09:12)
[2025-02-24] MEDS: VANCOMYCIN IV 1,250 MG in IV DEXTROSE 5% 250 ML IV SCH (10:08)
[2025-02-24] MEDS ORDERED: SUCRALFATE 1 G TABLET PO SCH (11:30)
[2025-02-24] MEDS: PIPERACILLIN SODIUM/TAZOBACTAM 3.375 G in IV DEXTROSE 5% 50 ML IV SCH (11:54)
[2025-02-24] MEDS: SODIUM HYPOCHLORITE 0.125% (QUARTER STRENGTH) 473 ML BOTTLE TP SCH (13:27)
[2025-02-24] MEDS: MICAFUNGIN SODIUM 100 MG in IV NORMAL SALINE 100 ML IV SCH (16:17)
[2025-02-24] MEDS: ARGININE/GLUTAMINE/CALCIUM BMB 1 EACH POWD.PACK PO SCH (17:42)
[2025-02-25] VITALS (11 sets, daily range): BP systolic 104–136; BP diastolic 47–63; TEMP 97.9–98.8; O2SAT 62–100
[2025-02-25 06:59] LABS: CREATININE 0.7 mg/dL (0.6-1.3); SODIUM SERUM 143 mmol/L (136-145); UREA NITROGEN, BLOOD 21 mg/dL (7-18)
[2025-02-25 07:00] LABS: PLATELET COUNT (AUTO) 343 K/uL (179-408); RED CELL DISTRIBUTION WIDTH 17.7 % (12.3-17.7); WHITE BLOOD COUNT (AUTO) 8.7 K/uL (3.8-11.8)
[2025-02-25 07:01] LABS: RED BLOOD CELL COUNT(AUTO) 2.34 MIL/uL (3.63-4.92)
[2025-02-25] MEDS: MUPIROCIN 2% OINT 22 GM TUBE NS SCH (09:34)
[2025-02-25] MEDS: diphenhydrAMINE 50 MG/1 ML VIAL IV ONE (15:30)
[2025-02-25] MEDS: ACETAMINOPHEN 325 MG TABLET PO ONE (15:30)
[2025-02-25] MEDS: REMEDY ESSENTIAL ZINC PASTE 113 GM TOP SCH (15:31)
[2025-02-26] VITALS (7 sets, daily range): BP systolic 118–138; BP diastolic 50–67; TEMP 97.9–98.3; O2SAT 95–99
[2025-02-26 06:52] LABS: PLATELET COUNT (AUTO) 320 K/uL (179-408); RED BLOOD CELL COUNT(AUTO) 2.79 MIL/uL (3.63-4.92); RED CELL DISTRIBUTION WIDTH 17.3 % (12.3-17.7); WHITE BLOOD COUNT (AUTO) 9.0 K/uL (3.8-11.8)
[2025-02-26 07:15] LABS: CREATININE 0.7 mg/dL (0.6-1.3); SODIUM SERUM 142 mmol/L (136-145); UREA NITROGEN, BLOOD 16 mg/dL (7-18)
[2025-02-26] MEDS ORDERED: POTASSIUM CHLORIDE 20 MEQ POWDER PACKET GT ONE (08:00)
[2025-02-26] MEDS: POTASSIUM CHLORIDE 20 MEQ TAB.PRT.SR PO ONE (08:50)
[2025-02-26 08:52] LABS: BAND % (MANUAL) 1 % (0-10); LYMPHOCYTES % (MANUAL) 20 % (20-40); MONOCYTES % (MANUAL) 5 % (2-10); NEUTROPHILS % (MANUAL) 74 % (42-75); NUCLEATED RED BLOOD CELLS 1.0 /100WBC; PLATELET ESTIMATE ADEQUATE
[2025-02-27 04:03] VITALS: O2SAT 99
[2025-02-27 09:15] LABS: PLATELET COUNT (AUTO) 362 K/uL (179-408); RED BLOOD CELL COUNT(AUTO) 3.11 MIL/uL (3.63-4.92); RED CELL DISTRIBUTION WIDTH 17.1 % (12.3-17.7); WHITE BLOOD COUNT (AUTO) 11.2 K/uL (3.8-11.8)
[2025-02-27 09:37] LABS: CREATININE 0.7 mg/dL (0.6-1.3); SODIUM SERUM 141 mmol/L (136-145); UREA NITROGEN, BLOOD 21 mg/dL (7-18)
[2025-02-27] MEDS ORDERED: FENTANYL CITRATE 100 MCG/2 ML AMPUL ONE (10:07)
[2025-02-27] MEDS ORDERED: LIDOCAINE 2% (GLYDO= UROJET) 10 ML JELLY MM ONE (10:07)
[2025-02-27] MEDS ORDERED: KETAMINE HCL 500 MG/5 ML VIAL ONE (10:07)
[2025-02-27] MEDS ORDERED: MIDAZOLAM HCL 2 MG/2 ML VIAL ONE (10:07)
[2025-02-27] MEDS ORDERED: LABETALOL HCL 100 MG/20 ML VIAL ONE (10:07)
[2025-02-27] MEDS ORDERED: ALBUMIN HUMAN 5% 250 ML ONE (10:08)
[2025-02-27] MEDS ORDERED: FAMOTIDINE. 20 MG/2 ML VIAL IV ONE (10:08)
[2025-02-27] MEDS ORDERED: ROCURONIUM BROMIDE 50 MG/5 ML VIAL ONE (10:09)
[2025-02-27] MEDS ORDERED: SUGAMMADEX SODIUM 200 MG/2 ML VIAL IV ONE (10:09)
[2025-02-27] MEDS: MAGNESIUM SULFATE/D5W 100 ML IV SCH ×2 (10:30→14:48)
[2025-02-27] MEDS ORDERED: PROPOFOL 200 MG/20 ML BOTTLE ONE (10:41)
[2025-02-27] MEDS ORDERED: ONDANSETRON 4 MG/2 ML VIAL ONE (10:41)
[2025-02-27] MEDS ORDERED: DEXAMETHASONE SOD PHOSPHATE 4 MG INJ ONE (10:41)
[2025-02-27] MEDS ORDERED: LIDOCAINE-MPF 2% 5 ML VIAL ONE (10:41)
[2025-02-27] MEDS ORDERED: MINERAL OIL/PETROLAT OPHT OINT 3.5 GM TUBE ONE (10:41)
[2025-02-27] MEDS ORDERED: EPHEDRINE SULFATE 50 MG/ML AMPUL ONE (10:41)
[2025-02-27] MEDS ORDERED: CEFAZOLIN 1 G VIAL ONE (10:41)
[2025-02-27 10:46] LABS: EOSINOPHILS % (MANUAL) 2 % (0-8); LYMPHOCYTES % (MANUAL) 22 % (20-40); MONOCYTES % (MANUAL) 4 % (2-10); NEUTROPHILS % (MANUAL) 72 % (42-75); PLATELET ESTIMATE ADEQUATE
[2025-02-27] MEDS ORDERED: SEVOFLURANE 250 ML BOTTLE ONE (11:59)
[2025-02-27] MEDS ORDERED: BUPIVACAINE/EPI PF 0.25% 10 ML VIAL IJ ONE (12:14)
[2025-02-27] MEDS ORDERED: LIDOCAINE HCL 1% 20 ML VIAL ONE (12:14)
[2025-02-27] MEDS ORDERED: BUPIVACAINE PF 0.5% 30 ML VIAL ONE (12:18)
[2025-02-27] MEDS ORDERED: ROPIVACAINE HCL/PF 0.5% ( 5 MG/ML ) , 20 ML VIAL ONE (12:18)
[2025-02-27] MEDS: ONDANSETRON 4 MG/2 ML VIAL IV ONE (13:30)
[2025-02-27 14:10] VITALS: BP 148/72
[2025-02-27 16:00] VITALS: O2SAT 98
[2025-02-27 16:05] VITALS: BP 110/68; TEMP 97.6; O2SAT 94
[2025-02-27 19:40] VITALS: BP_SYST 132; BP_SYST 133; BP_DIAS 57; BP_DIAS 62; TEMP 98; O2SAT 95; O2SAT 98
[2025-02-28 05:05] VITALS: O2SAT 98
[2025-02-28] MEDS: VANCOMYCIN IV 1,250 MG in IV DEXTROSE 5% 250 ML IV SCH (05:23)
[2025-02-28 06:48] LABS: PLATELET COUNT (AUTO) 338 K/uL (179-408); RED BLOOD CELL COUNT(AUTO) 2.87 MIL/uL (3.63-4.92); RED CELL DISTRIBUTION WIDTH 16.8 % (12.3-17.7); WHITE BLOOD COUNT (AUTO) 11.9 K/uL (3.8-11.8)
[2025-02-28 07:02] LABS: CREATININE 0.8 mg/dL (0.6-1.3); SODIUM SERUM 141 mmol/L (136-145); UREA NITROGEN, BLOOD 16 mg/dL (7-18)
[2025-02-28 07:05] VITALS: BP 142/62; TEMP 97.9; O2SAT 97
[2025-02-28 07:49] VITALS: BP 131/58; TEMP 97.6; O2SAT 99
[2025-02-28 08:52] LABS: EOSINOPHILS % (MANUAL) 2 % (0-8); LYMPHOCYTES % (MANUAL) 18 % (20-40); MONOCYTES % (MANUAL) 4 % (2-10); NEUTROPHILS % (MANUAL) 76 % (42-75); PLATELET ESTIMATE ADEQUATE
[2025-02-28] MEDS: PREGABALIN 25 MG CAPSULE PO SCH (08:56)
[2025-02-28] MEDS: AMIODARONE HCL 200 MG TABLET PO SCH (08:57)
[2025-02-28] MEDS: POTASSIUM CHLORIDE 20 MEQ POWDER PACKET PO ONE (10:09)
[2025-02-28 16:09] VITALS: BP 129/64; TEMP 97.6; O2SAT 98
[2025-02-28 19:05] VITALS: BP 142/71; TEMP 97.9; O2SAT 95
[2025-02-28 21:34] VITALS: O2SAT 96
[2025-03-01] VITALS (7 sets, daily range): BP systolic 117–152; BP diastolic 58–79; TEMP 97–98; O2SAT 96–98
[2025-03-01 07:00] LABS: PLATELET COUNT (AUTO) 365 K/uL (179-408); RED BLOOD CELL COUNT(AUTO) 3.12 MIL/uL (3.63-4.92); RED CELL DISTRIBUTION WIDTH 16.5 % (12.3-17.7); WHITE BLOOD COUNT (AUTO) 10.8 K/uL (3.8-11.8)
[2025-03-01 07:14] LABS: CREATININE 0.6 mg/dL (0.6-1.3); SODIUM SERUM 142 mmol/L (136-145); UREA NITROGEN, BLOOD 12 mg/dL (7-18)
[2025-03-01 08:16] LABS: EOSINOPHILS % (MANUAL) 1 % (0-8); LYMPHOCYTES % (MANUAL) 22 % (20-40); MONOCYTES % (MANUAL) 7 % (2-10); NEUTROPHILS % (MANUAL) 70 % (42-75); PLATELET ESTIMATE ADEQUATE
[2025-03-01] MEDS: PANTOPRAZOLE SODIUM 40 MG TABLET.DR PO SCH (16:23)
[2025-03-02 05:17] VITALS: BP 138/61; TEMP 98; O2SAT 95
[2025-03-02 07:04] LABS: PLATELET COUNT (AUTO) 311 K/uL (179-408); RED BLOOD CELL COUNT(AUTO) 3.45 MIL/uL (3.63-4.92); RED CELL DISTRIBUTION WIDTH 17.8 % (12.3-17.7); WHITE BLOOD COUNT (AUTO) 10.4 K/uL (3.8-11.8)
[2025-03-02 07:26] LABS: CREATININE 0.5 mg/dL (0.6-1.3); SODIUM SERUM 140 mmol/L (136-145); UREA NITROGEN, BLOOD 12 mg/dL (7-18)
[2025-03-02 11:21] VITALS: BP 135/56; TEMP 98.3; O2SAT 98
[2025-03-02 16:00] VITALS: BP 122/59; TEMP 97.8; O2SAT 96
[2025-03-02 16:49] VITALS: O2SAT 96
[2025-03-02 19:36] VITALS: BP 115/42; TEMP 97.9; O2SAT 96
[2025-03-02 20:40] VITALS: O2SAT 96
[2025-03-02] MEDS: VANCOMYCIN IV 1,250 MG in IV DEXTROSE 5% 250 ML IV SCH (20:57)
[2025-03-03 05:36] VITALS: BP 135/60; TEMP 97.9; O2SAT 96
[2025-03-03 06:22] LABS: PLATELET COUNT (AUTO) 316 K/uL (179-408); RED BLOOD CELL COUNT(AUTO) 3.02 MIL/uL (3.63-4.92); RED CELL DISTRIBUTION WIDTH 16.4 % (12.3-17.7); WHITE BLOOD COUNT (AUTO) 10.5 K/uL (3.8-11.8)
[2025-03-03 06:31] LABS: CREATININE 0.6 mg/dL (0.6-1.3); SODIUM SERUM 140 mmol/L (136-145); UREA NITROGEN, BLOOD 22 mg/dL (7-18)
[2025-03-03] MEDS: POTASSIUM CHLORIDE 50 ML IV SCH (09:33)
[2025-03-03] MEDS: MAGNESIUM SULFATE/D5W 100 ML IV SCH (09:33)
[2025-03-03] MEDS: POTASSIUM CHLORIDE 20 MEQ TAB.PRT.SR PO ONE (11:46)
[2025-03-03 12:00] VITALS: BP 115/46; TEMP 98.1; O2SAT 98
[2025-03-03 12:05] VITALS: O2SAT 97
[2025-03-03 12:12] VITALS: BP 115/36; TEMP 98; O2SAT 98
[2025-03-03 15:52] VITALS: BP 130/62; TEMP 98.9; O2SAT 98
[2025-03-03 22:30] VITALS: BP 115/59; TEMP 97.9; O2SAT 96
[2025-03-04 05:23] VITALS: BP 110/58; TEMP 98.2; O2SAT 97
[2025-03-04 05:45] VITALS: O2SAT 97
[2025-03-04 07:56] VITALS: BP 136/70; TEMP 98.6; O2SAT 99
[2025-03-04] MEDS: AMIODARONE HCL 200 MG TABLET PO SCH (08:38)
[2025-03-04 10:54] VITALS: BP 121/56; TEMP 97.8; O2SAT 98
== END 2025-03-04 13:16 | DRG 326 ==
LOC: ER 21:34 → ICU IN 02-23 01:04 → UNDOADMIN 02-23 01:04 → CCU 02-23 08:36 → TELE3 02-24 06:00 → MEDSURG3 02-26 08:20
PROVIDERS: ADMIT Nurse Practitioner Family; ATTEND Nurse Practitioner Family
PROC: 30233N1 Transfusion of Nonautologous Red Blood Cells into Peripheral Vein, Percutaneous Approach (ICD-10-PCS; 2025-02-22)
PROC: 05HF33Z Insertion of Infusion Device into Left Cephalic Vein, Percutaneous Approach (ICD-10-PCS; 2025-02-23)
PROC: 0DB68ZX Excision of Stomach, Via Natural or Artificial Opening Endoscopic, Diagnostic (ICD-10-PCS; principal; 2025-02-23 18:30)
PROC: 0KBN0ZZ Excision of Right Hip Muscle, Open Approach (ICD-10-PCS; 2025-02-26)
PROC: 0KBP0ZZ Excision of Left Hip Muscle, Open Approach (ICD-10-PCS; 2025-02-26)
PROC: 0DP64CZ Removal of Extraluminal Device from Stomach, Percutaneous Endoscopic Approach (ICD-10-PCS; 2025-02-27)
PROC: 0FB04ZX Excision of Liver, Percutaneous Endoscopic Approach, Diagnostic (ICD-10-PCS; 2025-02-27)
PROC: 0DJ08ZZ Inspection of Upper Intestinal Tract, Via Natural or Artificial Opening Endoscopic (ICD-10-PCS; 2025-02-27)
DX: K95.09 Other complications of gastric band procedure (principal); A41.81 Sepsis due to Enterococcus; K21.01 Gastro-esophageal reflux disease with esophagitis, with bleeding; E43 Unspecified severe protein-calorie malnutrition; L89.154 Pressure ulcer of sacral region, stage 4; J15.69 Pneumonia due to other Gram-negative bacteria; N17.0 Acute kidney failure with tubular necrosis; R65.21 Severe sepsis with septic shock; R57.0 Cardiogenic shock; D62 Acute posthemorrhagic anemia; R57.9 Shock, unspecified; N39.0 Urinary tract infection, site not specified; D68.59 Other primary thrombophilia; J91.8 Pleural effusion in other conditions classified elsewhere; Y73.1 Therapeutic (nonsurgical) and rehabilitative gastroenterology and urology devices associated with adverse incidents; I48.0 Paroxysmal atrial fibrillation; Y92.129 Unspecified place in nursing home as the place of occurrence of the external cause; N28.1 Cyst of kidney, acquired; M89.8X9 Other specified disorders of bone, unspecified site; E87.6 Hypokalemia; E86.0 Dehydration; E88.09 Other disorders of plasma-protein metabolism, not elsewhere classified; Z68.38 Body mass index [BMI] 38.0-38.9, adult; E66.9 Obesity, unspecified; E83.42 Hypomagnesemia; E78.5 Hyperlipidemia, unspecified; K29.70 Gastritis, unspecified, without bleeding; I11.9 Hypertensive heart disease without heart failure; Z79.01 Long term (current) use of anticoagulants; Z79.899 Other long term (current) drug therapy; Z71.3 Dietary counseling and surveillance; Z22.322 Carrier or suspected carrier of Methicillin resistant Staphylococcus aureus; L08.9 Local infection of the skin and subcutaneous tissue, unspecified
CPT/HCPCS: 36415; 70030-TC; 71045; 71275; 83550; 83605; 83690; 83735; 84100; 84443; 84484; 85025; 85610; 86850; 86900; 86901; 86920; 87040; 87070; 87075; 87077; 87086; 88313-TC; 88342; A4606; A4663; A6213; G0378; J0690; J1100; J1160; J1200; J1308; J1450; J1956; J2248; J2250; J2270; J2405; J2470; J2543; J2795; J3010; J3373; J3475; J3480; J3490; J7040; J7050; P9016; P9045; Q9967